=== PATIENT | male | born 1985 | race Caucasian/White ===

== ENCOUNTER 2023-07-27 01:26 | Day surgery (SDC) | payer BC, SELFPAY ==
[2023-07-13 15:38] VITALS: BMI 29.6
--- NOTE | 2023-07-24 15:36 | P.HP_ITS ---
History of Present Illness History of Present Illness Consent: Risks, benefits, and alternatives have been discussed and questions answered. Patient agrees to proceed with procedure. Chief complaint: other fecal abnormalities,occult blood in stool Narrative: Stanislaw Hansen is a 38 year old male Referred for colonoscopy due to having blood in his stools. Several times in the last year he has seen blood in a bowel movement. He has not had rectal or abdominal pain. He does not recall straining or being constipated when he passed blood. Review of Systems Review of Systems: All systems reviewed & are unremarkable except as noted in HPI and below [facility] Social History Social History Smoking status: Never smoker Alcohol intake: current Alcohol use details: 5 drinks monthly Substance use type: does not use Living arrangements: with family Spiritual care concerns: No Meds Home Medications and Allergies Home Medications Medication Instructions Recorded Confirmed Type No Home Medications 07/14/23 07/14/23 History Allergies Allergy/AdvReac Type Severity Reaction Status Date / Time Penicillins Allergy Unknown Other Verified 07/27/23 09:58 Exam Const: General: alert Orientation/consciousness: patient oriented x3 Resp: Auscultation: clear to auscultation bilaterally Cardio: Rhythm: regular rhythm GI: GI Palp: Yes Soft to palpation and No Tenderness to palpation present (GI) Neuro: General: patient oriented x3 Assessment and Plan Assessment and plan (1) Occult blood in stools: Code(s): R19.5 - Other fecal abnormalities Status: Acute Assessment and Plan: Colonoscopy with possible biopsy or polypectomy or cautery or injection of substances.
--- NOTE | 2023-07-27 08:03 | P.PNAN_ITS ---
Anes - Initial Pre Proc Eval Procedure: Operation Date: 07/27/23 11:00 Proposed Procedures p Colonoscopy - Shubham Latham MD Date/Time: 07/27/23 08:03 Surgeon: Shubham Latham MD Pre Op Diagnosis: other fecal abnormalities,occult blood in stool Patient Data Age: 38 Gender: M Height: 1.75 m Weight: 91 kg Allergies Allergy/AdvReac Type Severity Reaction Status Date / Time Penicillins Allergy Unknown Other Verified 07/27/23 09:58 Home Medications Medication Instructions Recorded Confirmed Type No Home Medications 07/14/23 07/14/23 History Patient hx anesthesia problems: none Family hx anesthesia problems: none Results Review: All pre-operative results and documents have been reviewed as part of the pre- operative evaluation. [facility] Past Medical History Medical History (Updated 07/27/23 @ 10:25 by Ellis Campo DO) Occult blood in stools Social History Social History Smoking status: Never smoker Alcohol intake: current Alcohol use details: 5 drinks monthly Substance use type: does not use Living arrangements: with family Spiritual care concerns: No Anes - Eval Final PreProcedure Day of Procedure 07/27/23 08:03 Patient weight: overweight Heart: regular rate and rhythm Lungs: clear to auscultation Airway: Mallampati scale class II Neurological: alert and oriented Last oral intake: >/= 8 hours ASA classification: II Emergent: no Anesthetic plan: proceed Anesthesia type and monitoring: general GIVS and standard monitoring Results Review: All pre-operative results and documents have been reviewed as part of the pre- operative evaluation. Informed Consent: The patient's anesthetic plan and its attendant risks and benefits were discussed with the patient/family/POA. Questions were solicited and answers provided to the satisfaction of the patient/family/POA.
[2023-07-27 10:00] VITALS: BP 134/93; PULSE 79; RESP 18; TEMP 36.4; O2SAT 100
[2023-07-27] MEDS: LACTATED RINGERS 1,000 ML 150 ML IV CONT (10:07)
[2023-07-27 11:07] VITALS: BP 107/68; PULSE 76; RESP 25; O2SAT 97
[2023-07-27 11:17] VITALS: BP 120/83; PULSE 77; RESP 23; O2SAT 97
[2023-07-27 11:27] VITALS: BP 100/71; PULSE 69; RESP 15; O2SAT 98
== END 2023-07-27 11:36 | disposition home or self-care (01) ==
PROVIDERS: PCP Physician Assistant; Visit Provider Internal Medicine Gastroenterology
PROC: 0DJD8ZZ Inspection of Lower Intestinal Tract, Via Natural or Artificial Opening Endoscopic (ICD-10-PCS; CPT 45378; principal; 2023-07-27 11:00)
DX: K63.5 Polyp of colon (principal); K64.8 Other hemorrhoids
CPT/HCPCS: 45380; 88305; J2704; J7120

== ENCOUNTER 2024-07-21 09:01 | Day surgery (SDC) | payer BC, SELFPAY ==
[2024-07-21] VITALS (10 sets, daily range): BP systolic 101–147; BP diastolic 49–91; PULSE 82–96; RESP 14–20; TEMP 36.6–36.8; O2SAT 96–100
--- NOTE | ~2024-07-21 | CT_ITS ---
CT of the Abdomen and Pelvis: Indication: Abdominal pain Technique: 2.5 mm axial scans were obtained through the abdomen and pelvis following intravenous adm inistration of 100 cc of Omnipaque 350. Dose reduction technique was used on this scan by utilizing a utomated exposure control and iterative reconstruction technique. The dose-length product (DLP) was 6 03.06 mGy-cm. Findings: Scans through the lung bases are unremarkable. The liver, spleen, pancreas, gallbladder, adrenals and right kidney are within normal limits. 1.1 cm exophytic left renal lesion demonstrates probable small area of central fat, suggestive therefore of angiomyolipoma (axial image 71). No evidence of aortic aneurysm. No lymphadenopathy. Appendix is dilated to 1.2 cm, with extensive periappendiceal inflammatory change. No abscess or free air. No bowel obstruction. Images through the pelvis were performed. Urinary bladder unremarkable. No pelvic mass seen. No ascit es. Impression: Acute appendicitis, as detailed above. No abscess or free air. 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 Small renal cell carcinoma felt to be le ss likely given the low attenuation centrally. Reviewed, dictated and finalized at location . Impression: Acute appendicitis, as detailed above. No abscess or free air. 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 Small renal cell c arcinoma felt to be less likely given the low attenuation centrally.
--- NOTE | 2024-07-21 09:26 | ED.ABDPAIN ---
HPI - Abdominal Pain General Chief Complaint: Abdominal Pain <JYOTHI Olivo Last Filed: 07/21/24 14:48> Stated Complaint: abdominal pain <Drake Menon PA-C - Last Filed: 07/21/24 14:48> Time Seen by Provider: 07/21/24 09:34 <Drake Menon PA-C - Last Filed: 07/21/24 14:48> Focused HPI: 39-year-old male presenting to the ED for chief complaint of abdominal pain over the past couple of days. States that this localized today to the right lower quadrant. He went to urgent care who sent him directly here for evaluation of possible appendicitis. Patient states that he has had waves of nausea but no vomiting. Denies flank pain, back pain, fevers, chills. GENERAL: Well-appearing, well-nourished, and in no acute distress. HEAD: Normocephalic, atraumatic. CHEST: Clear to auscultation. No respiratory distress. HEART: Regular rate and rhythm. ABD: Focal RLQ tenderness present. No peritoneal signs NEURO: Alert and oriented x3. Patient screened in triage and initial orders placed. Additional care and disposition to be based upon diagnostic testing and treatment. <Drake Menon PA-C - Last Filed: 07/21/24 14:48> Related Data Home Medications: Home Medications Medication Instructions Recorded Confirmed No Home Medications 07/14/23 07/21/24 <Drake Menon PA-C - Last Filed: 07/21/24 14:48> Allergies/Adverse Reactions: Allergies Allergy/AdvReac Type Severity Reaction Status Date / Time Penicillins Allergy Unknown Other Verified 07/21/24 12:59 <JYOTHI Olivo Last Filed: 07/21/24 14:48> Review of Systems Review of Systems: All systems as dictated in HPI <Drake Menon PA-C - Last Filed: 07/21/24 14:48> [facility] Past Medical History Medical History: Medical History Occult blood in stools <JYOTHI Olivo Last Filed: 07/21/24 14:48> Surgical History Surgical History: Surgical History History of tonsillectomy <Drake Menon PA-C - Last Filed: 07/21/24 14:48> Social History Social History: Social History Smoking status: Never smoker Alcohol intake: current Alcohol use details: 5 drinks monthly Substance use type: does not use Living arrangements: with family Spiritual care concerns: No <Drake Menon PA-C - Last Filed: 07/21/24 14:48> Exam Narrative: GENERAL: Well-appearing, well-nourished, and in no acute distress. HEAD: Normocephalic, atraumatic. EYES: PERRLA and EOMI. ENT: Nares clear, no rhinorrhea or epistaxis. Mucous membranes moist. Oropharynx without tonsillar hypertrophy exudate or other lesions. NECK: Supple. No adenopathy or masses. CHEST: No respiratory distress. Clear to auscultation. No wheezes rales or rhonchi HEART: Regular rate and rhythm. No murmur heard. Normal peripheral pulses. ABDOMEN: Right lower quadrant tenderness present. Soft, nontender, nondistended, normal active bowel sounds. MSK: Normal range of motion. No edema. SKIN: Warm, dry, no rash. NEURO: Alert and oriented x4. No focal deficits. PSYCH: Normal mood and affect. 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 <Carmelina Fall MD - Last Filed: 07/21/24 19:04> Vital Signs Vital signs: Vital Signs Temperature 97.8 F 07/21/24 09:29 Pulse Rate 90 07/21/24 09:29 Respiratory Rate 16 07/21/24 09:29 Blood Pressure 141/84 H 07/21/24 09:29 Pulse Oximetry 100 07/21/24 09:29 Oxygen Delivery Room Air 07/21/24 09:29 Temperature 98.2 F 07/21/24 16:33 Pulse Rate 82 07/21/24 17:44 Respiratory Rate 16 07/21/24 17:44 Blood Pressure 144/86 H 07/21/24 17:44 Pulse Oximet
[2024-07-21 09:31] LABS: Basophils Percent Auto 0.6 % (0.2-1.2); Eosinophils Absolute Auto 0.2 K/mm3 (0-0.3); Eosinophils Percent Auto 3.1 % (0-4.4); Hematocrit 48.5 % (42.0-52.0); Hemoglobin 16.9 g/dL (14.0-18.0); Immature Granulocyte Absolute 0.02 K/mm3 (0.00-0.031); Immature Granulocyte Percent A 0.3 % (0-0.5); Lymphocytes Absolute Auto 1.47 K/mm3 (0.9-3.2); Lymphocytes Percent Auto 20.8 % (18.3-44.2); Mean Corpuscular HGB Conc 34.8 g/dl (32-36); Mean Corpuscular Hemoglobin 30.1 pg (26-34); Mean Corpuscular Volume 86.5 fl (80-100); Mean Platelet Volume 9.8 fl (7.4-10.4); Monocytes Absolute Auto 0.6 K/mm3 (0.1-0.6); Monocytes Percent Auto 7.8 % (2.6-8.5); Neutrophils Absolute Auto 4.8 K/mm3 (1.3-6.7); Neutrophils Percent Auto 67.4 % (45.5-73.1); Platelet Count Result 226 k/mm3 (150-375); Red Blood Count 5.61 M/mm3 (4.6-6.20); Red Cell Distribution Width 12.4 % (11.5-14.5); White Blood Count 7.1 K/mm3 (4.5-10.0)
[2024-07-21 09:37] LABS: Estimated CRCL calculation 86 ml/min; Estimated Glomerular Filt Rate > 60
[2024-07-21 09:45] LABS: Alanine Aminotransferase 21 U/L (6-50); Albumin Level 5.1 g/dL (3.5-5.1); Alkaline Phosphatase 53 U/L (38-126); Anion Gap 13 mmol/L (4-12); Aspartate Amino Transferase 26 U/L (17-59); Bilirubin,Total 0.9 mg/dL (0.2-1.3); Blood Urea Nitrogen 17 mg/dL (9-20); Calcium 9.3 mg/dL (8.4-10.2); Carbon Dioxide 26 mmol/L (22-30); Chloride 99 mmol/L (98-107); Estimated CRCL calculation 95 ml/min; Estimated Glomerular Filt Rate > 60; Glucose 108 mg/dL (65-110); Lipase 70 U/L (23-300); Potassium 4.3 mmol/L (3.4-5.0); Sodium 138 mmol/L (137-145)
[2024-07-21 10:18] LABS: Add Urine Microscopic? YES; Appearance Urine Clear (Clear); Bacteria Urine None Seen /hpf; Bilirubin Urine Negative (Negative); Blood Urine Negative (Negative); Color Urine Yellow (Yellow); Glucose Urine UA Negative (Negative); Ketones Urine Negative (Negative); Leukocyte Esterase Ur Negative LEU/UL (Negative); Nitrate Urine Negative (Negative); Non Pathogenic Casts 0-2; Protein Urine Trace mg/dL (Negative); RBC Urine 0-2 /hpf (0-2); Squamous Epithelial Cell Urine None Seen /hpf (Few); Urobilinogen Urine 0.2 mg/dL (<2.0); WBC Urine 0-5 /hpf (0-3); pH Urine 5.5 (5.0-9.0)
[2024-07-21] MEDS: SODIUM CHLORIDE 0.9% IV 1,000 ML 999 ML IV CONT (10:19)
[2024-07-21] MEDS: LACTATED RINGERS 1,000 ML 30 ML IV CONT ×2 (12:00→16:22)
[2024-07-21] MEDS: metroNIDAZOLE 500 MG/ISO 100ML 500 MG/100 ML BAG 100 MG IVPB (12:30)
--- NOTE | 2024-07-21 12:54 | PM.IMHP ---
H&P: HPI History of Present Illness Date/Time: 07/21/24 12:54 Chief Complaint: Abdominal pain Narrative: This is a 39-year-old who presented to the ED today with complaints of abdominal pian x 2 days. He woke up 2 days ago with mild upper abdominal pain. By the following day, his pain had migrated to the RLQ. He went to work yesterday and tried to give it some time. His pain was persistent through the night and he decided to come into the ED for evaluation today. Labs were unremarkable and he had a normal white blood cell count. UA negative. CT scan of the abdomen and pelvis showed acute appendicitis. Incidentally seen is a small left renal lesion. Our service was contacted by the ED provider and he is now seen for surgical evaluation. No previous abdominal surgeries. Review of Systems Review of Systems: All systems reviewed & are unremarkable except as noted in HPI and below [facility] Past Medical History Medical History Occult blood in stools Surgical History Surgical History History of tonsillectomy Social History Social History Smoking status: Never smoker Alcohol intake: current Alcohol use details: 5 drinks monthly Substance use type: does not use Living arrangements: with family Spiritual care concerns: No Meds Home Medications and Allergies Home Medications Medication Instructions Recorded Confirmed Type No Home Medications 07/14/23 07/21/24 History Allergies Allergy/AdvReac Type Severity Reaction Status Date / Time Penicillins Allergy Unknown Other Verified 07/21/24 12:59 Vital Signs Vital Signs - 24 hr 07/21/24 09:29 Temperature 97.8 F Pulse Rate 90 Respiratory Rate 16 Blood Pressure 141/84 H Pulse Oximetry 100 Oxygen Delivery Room Air Exam Const: General: comfortable and no acute distress Nutritional Appearance: average body habitus Orientation/consciousness: patient oriented x3 HENMT: Head: normocephalic and atraumatic Ears: hearing grossly normal bilaterally Mouth: Yes moist mucous membranes Eyes: General: appearance normal, both eyes and all related structures Pupils: Equal, round and reactive pupils present Neck: Neck: normal visual inspection and full ROM Resp: Effort & Inspection: no respiratory distress Auscultation: clear to auscultation bilaterally Cardio: Rate: regular rate Rhythm: regular rhythm Heart sounds: S1 normal heart sound present and S2 normal heart sound present Peripheral pulses: Peripheral pulses 2+ throughout GI: Inspection: non-distended and no visible herniation GI Palp: Yes Soft to palpation, Yes Tenderness to palpation present (GI) (RLQ), Yes Guarding due to palpation present (GI) (RLQ), Yes No hepatosplenomegaly present and No Rebound tenderness present Percussion: Yes normal to percussion Auscultation: normal bowel sounds Skin: General skin exam: normal color Neuro: General: moves all extremities and no focal motor deficits Speech: normal speech Motor exam (neuro): 5/5 motor strength present throughout Extrem: General: normal to inspection and no edema Psych: Mental Status: mental status grossly normal Attitude: cooperative Insight: Good insight present (Psych) Judgement: Good judgement present (Psych) H&P: Results Labs Labs: Short CBC 07/21/24 Range/Units 09:25 WBC 7.1 (4.5-10.0) K/mm3 Hgb 16.9 (14.0-18.0) g/dL Hct 48.5 (42.0-52.0) % Plt Count 226 (150-375) k/mm3 BMP 07/21/24 07/21/24 09:25 09:35 Sodium 138 Potassium 4.3 Chloride 99 Carbon Dioxide 26 BUN 17 Creatinine 0.90 1.00 Glucose 108 Calcium 9.3 Liver Function 07/21/24 Range/Units 09:25 Total Bilirubin 0.9 (0.2-1.3) mg/dL AST 26 (17-59) U/L ALT 21 (6-50) U/L Alkaline Phosphatase 53 (38-126) U/L Albumin 5.1 (3.5-5.1)
--- NOTE | 2024-07-21 14:49 | WPDANESEPPF ---
Anes - Initial Pre Proc Eval Procedure: Operation Date: 07/21/24 14:30 Proposed Procedures p Laparoscopic Appendectomy - Raúl Lane MD Date/Time: 07/21/24 14:49 Surgeon: Raúl Lane MD Pre Op Diagnosis: abdominal pain Patient Data Age: 39 Gender: M Height: 1.75 m Weight: 88.1 kg Last Vital Signs Temp 36.7 C 07/21/24 12:30 Pulse 92 07/21/24 12:30 Resp 18 07/21/24 12:30 BP 147/91 H 07/21/24 12:30 Pulse Ox 100 07/21/24 12:30 O2 Del Method Room Air 07/21/24 12:30 Allergies Allergy/AdvReac Type Severity Reaction Status Date / Time Penicillins Allergy Unknown Other Verified 07/21/24 12:59 Home Medications Medication Instructions Recorded Confirmed Type No Home Medications 07/14/23 07/21/24 History Laboratory Tests 07/21/24 07/21/24 09:25 09:35 WBC 7.1 K/mm3 (4.5-10.0) RBC 5.61 M/mm3 (4.6-6.20) Hgb 16.9 g/dL (14.0-18.0) Hct 48.5 % (42.0-52.0) MCV 86.5 fl (80-100) MCH 30.1 pg (26-34) MCHC 34.8 g/dl (32-36) RDW 12.4 % (11.5-14.5) Plt Count 226 k/mm3 (150-375) MPV 9.8 fl (7.4-10.4) Immature Gran % (Auto) 0.3 % (0-0.5) Neut % (Auto) 67.4 % (45.5-73.1) Lymph % (Auto) 20.8 % (18.3-44.2) Morrison % (Auto) 7.8 % (2.6-8.5) Eos % (Auto) 3.1 % (0-4.4) Baso % (Auto) 0.6 % (0.2-1.2) Lymph # (Auto) 1.47 K/mm3 (0.9-3.2) Morrison # (Auto) 0.6 K/mm3 (0.1-0.6) Eos # (Auto) 0.2 K/mm3 (0-0.3) Baso # (Auto) 0.0 K/mm3 (0.0-0.1) Abs Immat Gran (auto) 0.02 K/mm3 (0.00-0.031) Absolute Neuts (auto) 4.8 K/mm3 (1.3-6.7) Absolute Nucleated RBC 0.000 K/mm3 (0.0-0.012) Nucleated RBC % 0.0 % (0.0-0.2) Sodium 138 mmol/L (137-145) Potassium 4.3 mmol/L (3.4-5.0) Chloride 99 mmol/L (98-107) Carbon Dioxide 26 mmol/L (22-30) Anion Gap 13 H mmol/L (4-12) BUN 17 mg/dL (9-20) Creatinine 0.90 mg/dL 1.00 mg/dL (0.7-1.3) (0.8-1.5) Estim Creat Clear Calc 95 ml/min 86 ml/min Estimated GFR > 60 > 60 (59 - ) (59 - ) Glucose 108 mg/dL (65-110) Calcium 9.3 mg/dL (8.4-10.2) Total Bilirubin 0.9 mg/dL (0.2-1.3) AST 26 U/L (17-59) ALT 21 U/L (6-50) Alkaline Phosphatase 53 U/L (38-126) Total Protein 9.0 H g/dL (6.3-8.2) Albumin 5.1 g/dL (3.5-5.1) Lipase 70 U/L (23-300) Urine Color Yellow (Yellow) Urine Appearance Clear (Clear) Urine pH 5.5 (5.0-9.0) Ur Specific [place] 1.030 (1.001-1.035) Urine Protein Trace mg/dL (Negative) Urine Glucose (UA) Negative mg/dL (Negative) Urine Ketones Negative mg/dL (Negative) Ur Blood (Man) Negative (Negative) Urine Nitrate Negative (Negative) Urine Bilirubin Negative (Negative) Urine Urobilinogen 0.2 mg/dL (<2.0) Leukocyte Esterase Rfl Negative JAIME/UL (Negative) Urine RBC 0-2 /hpf (0-2) Urine WBC 0-5 /hpf (0-3) Ur Squamous Epith Cells None seen /hpf (Few) Urine Bacteria None seen /hpf Urine Casts 0-2 Patient hx anesthesia problems: none Family hx anesthesia problems: none Results Review: All pre-operative results and documents have been reviewed as part of the pre-operative evaluation. [facility] Past Medical History Medical History Occult blood in stools Surgical History Surgical History History of tonsillectomy Social History Social History Smoking status: Never smoker Alcohol intake: current Alcohol use details: 5 drinks monthly Substance use type: does not use Living a
--- NOTE | 2024-07-21 14:57 | WPDHPUPDATE1 ---
History and Physical Update Update Date/Time: 07/21/24 14:57 History and Physical has been reviewed, including an updated exam of the patient. There are NO changes in the patient's condition. Risks, benefits, and alternatives have been discussed and questions answered. Patient agrees to proceed with procedure.
[2024-07-21] MEDS: SCOPOLAMINE 1 MG PATCH 1 PATCH TRANSDERM (15:00)
[2024-07-21] MEDS: BUPIVACAINE/EPINEPHRINE 0.5% 10 ML VIAL 30 ML INFILTRATE (15:48)
--- NOTE | 2024-07-21 16:37 | P.OP_ITS ---
Procedure Note - Detailed Date of Procedure 07/21/24 Pre-op Diagnosis Acute appendicitis Post-op Diagnosis Same (Retrocecal) Procedure Performed Laparoscopic appendectomy Surgeon Raúl Lane MD Senior Php Developer Jason Anesthesia General and Local Indications Patient had central abdominal pain starting a day or 2 ago. This moved to the right lower quadrant. It became more severe. He came to the emergency room and was noted to have guarding in the right lower quadrant. His white blood cell count was normal but CT scan showed acute appendicitis. He is taken to surgery now for laparoscopic appendectomy Findings Patient had a retrocecal, retroperitoneal appendix with acute inflammation but no gangrenous changes or signs of ruptured appendix. No evidence of abscess. No other significant findings noted Description of Procedure Patient was taken to surgery and induced into general anesthesia. The abdomen is prepped and draped. Trocars were placed in the usual fashion using [employer] optical trocars and a 5 mm camera. Patient was placed in Trendelenburg with the right-side elevated. The cecum and distal ileum were covering the appendix and there were in lesions to the the lateral abdominal side wall covering it as well. With gentle traction on the cecum, I took down these lateral peritoneal attachments so that I could mobilize the cecum. This allowed me to expose the appendix. The appendix was clearly retroperitoneal. The distal 2/3 of the appendix were very inflamed and enlarged. The proximal 2-3 cm the appendix appeared normal. I dissected away the overlying peritoneum so that I could mobilize the appendix. I then exposed the mesoappendix and dissected the appendiceal artery. The appendiceal artery was thoroughly cauterized and divided. I then continued dissection of the mesentery around the appendix until the appendix was skeletonized at its base. I still had to free additional peritoneal covering so that the rest of the appendix was fully mobile and free from retroperitoneal attachments. I then placed a Vicryl endoloop over the base of the appendix and ligated it. The appendix was amputated just above the ligature and the mucosa of the appendiceal stump was cauterized. I placed the appendix immediately in an Endo-Catch bag. It was extricated through the 10 11 left lower quadrant trocar site. I replaced the 10 11 trocar and we reviewed the appendiceal stump and areas of dissection. Irrigation and suctioning were carried out repeatedly. There was no evidence of bleeding or bowel injury. All looked quite clean. I then evacuated CO2 and removed the trocar sleeves. Skin wounds were closed with subcuticular 4-0 Monocryl skin suture. The wounds were dressed with Exofin surgical adhesive. Patient was awakened and taken to recovery room in good condition. Sponge needle counts were correct x2. Estimated Blood Loss -5 Drains No Packing No Pathology Yes (Appendix) Complications None Condition Stable Disposition PACU [facility] Billing Surgery - Charge Forward: Surgery Billing (Laparoscopic appendectomy)
[2024-07-21] MEDS: oxyCODONE HCL (*CRX) 5 MG TAB IR PO (17:43)
== END 2024-07-21 18:08 | disposition home or self-care (01) ==
LOC: ANHED 10:31 → ANHSURGERY 10:33
PROVIDERS: Emergency Provider Physician Assistant; PCP Physician Assistant; Visit Provider Surgery
PROC: 0DTJ4ZZ Resection of Appendix, Percutaneous Endoscopic Approach (ICD-10-PCS; CPT 44970; principal; 2024-07-21 14:30)
DX: K35.80 Unspecified acute appendicitis (principal); K35.32 Acute appendicitis with perforation, localized peritonitis, and gangrene, without abscess
CPT/HCPCS: 44970; 36415; 74177; 80053; 81001; 83690; 85025; 88304; 96365; 99285; A9270; J0330; J0696; J1100; J1836; J2250; J2405; J2704; J3010; J7030; J7120; Q9967

== ENCOUNTER 2024-11-04 15:02 | Outpatient (CLI) | payer BC, SELFPAY ==
--- NOTE | ~2024-11-04 | MR_ITS ---
EXAMINATION: MR abdomen wo/w con DATE: 11/04/2024 15:46 INDICATION: Kidney lesion. TECHNIQUE: Magnetic resonance angiography (MRA) of the abdomen was performed without and with without and with 19 mL MultiHance mL Multihance intravenous contrast. COMPARISON: CT abdomen and pelvis 07/21/2024 FINDINGS: The liver, gallbladder, spleen, pancreas, adrenal glands, and right kidney are normal. There is a 10 mm mass containing fat in left kidney, consistent with an angiomyolipoma. There are no dilated loops of bowel. There are no pathologically enlarged lymph nodes. There is no free intraperitoneal fluid. IMPRESSION: 1. 10 mm angiomyolipoma in left kidney. Reviewed, dictated and finalized at location A. E INFORMATICIST
== END 2024-11-04 15:03 | disposition home or self-care (01) ==
LOC: MICIMG 15:03
PROVIDERS: PCP Physician Assistant; Visit Provider Physician Assistant
DX: N28.9 Disorder of kidney and ureter, unspecified (principal)
CPT/HCPCS: 74183; A9577